=== PATIENT | female | born 1990 | race Caucasian/White ===

== ENCOUNTER 2023-12-29 20:39 | Emergency (ER) | payer SELFPAY | END 2023-12-29 21:47 | disposition home or self-care (01) | LOC: CSHERS 20:39 | DX: S93.401A Sprain of unspecified ligament of right ankle, initial encounter (principal); Y30.XXXA Falling, jumping or pushed from a high place, undetermined intent, initial encounter; Y93.44 Activity, trampolining | CPT/HCPCS: 99283 ==

== ENCOUNTER 2024-11-06 16:13 | Emergency (ER) | payer SELFPAY | END 2024-11-06 17:50 | disposition home or self-care (01) | LOC: CSHERS 16:13 | DX: L02.214 Cutaneous abscess of groin (principal); F17.290 Nicotine dependence, other tobacco product, uncomplicated | CPT/HCPCS: 99282 ==

== ENCOUNTER 2025-03-20 18:49 | Emergency (ER) | payer SELFPAY ==
[2025-03-20 20:45] LABS: Glucose, Urine (Dipstick) Normal (Negative); Leukocyte 500 (Negative); Protein, Urine (Dipstick) 500 mg/dl (Neg-Trace); Specific Gravity, Urine 1.015 (1.005-1.030)
[2025-03-20 20:46] LABS: Pregnancy Test - Urine (BHCG) Negative (Negative); Pregu Control Background? CLEAR/WHITE (CLR/WHITE); Pregu Control Bar Appear? YES (CONTROL BAR)
[2025-03-20 20:55] LABS: #Basophils 0.10 10x3/uL (0.0-0.2); #Eosinophils 0.07 10x3/uL (0.0-0.5); #Monocytes 0.81 10x3/uL (0.0-1.1); #Neutrophils 17.57 10x3/uL (1.5-8.4); %Basophils 0.5 % (0.0-2.0); %Eosinophils 0.4 % (0.0-6.0); %Lymphocytes 6.0 % (18.0-47.0); %Monocytes 4.1 % (0.0-10.0); %Neutrophils 88.7 % (40.0-75.0); Hematocrit 29.2 % (34.9-44.5); Hemoglobin 9.2 g/dL (12.0-15.5); Mean Corpuscular Hemoglobin 21.3 pg (27.0-33.0); Mean Corpuscular Volume 67.7 fL (81.6-98.3); Platelet Count 514 10x3/uL (150-450); Red Blood Cell (RBC) Count 4.31 10x6/uL (3.90-5.03); White Blood Cell (WBC) Count 19.79 10x3/uL (3.5-10.5)
[2025-03-20 21:19] LABS: ALT (SGPT) 11 U/L (Less than 34); AST (SGOT) 33 U/L (11-34); Albumin 4.9 g/dL (3.1-4.5); Alkaline Phosphatase 46 U/L (40-110); Anion Gap 14 mmol/L (10-20); BUN (Urea Nitrogen) 9 mg/dL (7.0-18.7); Bilirubin, Total 0.4 mg/dL (0.3-1.2); Calc. Creatinine Clearance 0 mL/min (70-130); Calcium 9.5 mg/dL (7.8-10.44); Carbon Dioxide 24 mmol/L (22-29); Chloride 105 mmol/L (98-107); Globulin 2.8 g/dL (2.4-3.5); Glucose 113 mg/dL (70-105); Potassium 3.9 mmol/L (3.5-5.1); Sodium 139 mmol/L (136-145)
[2025-03-20 21:24] LABS: MDiff Complete? YES; Microcytosis MODERATE=15-30 cells (100X) (0-5/hpf); Platelet Adequacy Comment Appears Increased
[2025-03-20] MEDS ORDERED: Ketorolac Tromethamine 30 MG (1 mL) VIAL ONE (21:29)
[2025-03-20] MEDS ORDERED: Ondansetron PF 4 MG/2 ML Vial ONE (21:29)
[2025-03-20 21:31] LABS: RBC/HPF Greater than 50 HPF (0-3)
[2025-03-20 21:32] LABS: Bacteria/HPF 3+ HPF (None Seen); CAUTI Indications for Culture Pelvic or flank pain; Mucous/LPF 2+ LPF (<2+); WBC/HPF Greater than 50 HPF (0-3)
[2025-03-20 21:34] LABS: Urine Culture Reflex Yes Yes
[2025-03-20] MEDS ORDERED: cefTRIAXone (ROCEPHIN) 1 GM VIAL ONE (22:10)
== END 2025-03-20 22:48 | disposition home or self-care (01) ==
LOC: CSHERS 18:49
DX: N10 Acute pyelonephritis (principal); F17.290 Nicotine dependence, other tobacco product, uncomplicated; Z55.6 Problems related to health literacy
CPT/HCPCS: 80053; 81001; 81025; 85025; 87077; 87086; 87186; 96374; 96375; J0696; J1885; J2405